=== PATIENT | female | born 1995 | race Two or more races ===

== ENCOUNTER → 2025-06-11 | Outpatient (CLI) | payer BC, SELFPAY ==
--- NOTE | 2025-06-11 | XR_ITS ---
Examination: PA lateral chest 2 views TECHNIQUE: Upright PA lateral chest 2 views Date and time: June 11, 2025 1510 hours INDICATIONS: Chest pain beginning 3 days ago. FINDINGS: Normal heart size. Lungs are clear. The osseous structures are intact IMPRESSION: No active disease
[2025-06-11 16:03] LABS: Basophils # (Auto) 0.0 Thou/mm3 (0.0-0.2); Basophils % (Auto) 1 % (0-2.5); Eosinophils # (Auto) 0.1 Thou/mm3 (0.0-0.5); Eosinophils % (Auto) 1 % (0-10); Hematocrit 36.4 % (36.0-46.0); Hemoglobin 12.1 g/dL (12.0-16.0); Immature Granulocytes Auto 0.02 Thou/mm3 (0.00-0.00); Lymphocytes # (Auto) 1.6 Thou/mm3 (1.0-4.8); Lymphocytes % (Auto) 26 % (10-50); Mean Corpuscular HGB Conc 33.2 g/dl (31.0-37.0); Mean Corpuscular Hemoglobin 30.6 pg (25.0-35.0); Mean Corpuscular Volume 92 fL (80-100); Monocytes # (Auto) 0.4 Thou/mm3 (0.0-0.8); Monocytes % (Auto) 6 % (0-12); Neutrophils # (Auto) 4.2 Thou/mm3 (1.8-7.7); Neutrophils % (Auto) 66 % (37-80); Nucleated Red Blood Cell # 0.00 Thou/mm3 (0.00-0.00); Nucleated Red Blood Cell % 0 /100 WBC (0); Platelet Count 184 Thou/mm3 (140-440); RDW Standard Deviation 41.6 fL (36.4-46.3); Red Blood Count 3.96 Miln/mm3 (4.00-5.20); White Blood Count 6.4 Thou/mm3 (3.6-11.0)
[2025-06-11 16:08] LABS: Alanine Aminotransferase 36 U/L (10-49); Albumin, Serum 4.6 gm/dL (3.5-5.0); Albumin/Globulin Ratio 2.0 (1.2-2.2); Alkaline Phosphatase 78 U/L (46-116); Anion Gap 9 (7-16); Aspartate Amino Transferase 45 U/L (0-34); BUN/Creatinine Ratio 13 Ratio (12-20); Bilirubin,Total 0.4 mg/dL (0.3-1.2); Blood Urea Nitrogen 8 mg/dL (9-23); Calcium 9.3 mg/dL (8.3-10.6); Calcium (Corrected) 9.3 mg/dL (8.5-10.1); Carbon Dioxide 24.6 mMol/L (20.0-31.0); Chloride 106 mMol/L (98-107); Creatinine (Component) 0.6 mg/dL (0.6-1.3); Globulin 2.3 gm/dL (2.3-3.5); Glucose 93 mg/dL (74-106); Osmolality,Calculated 277 (275-295); Potassium 4.6 mMol/L (3.4-5.1); Sodium 140 mMol/L (136-145); Thyroid Stimulating Hormone 0.52 uIU/mL (0.55-4.78); Total Protein 6.9 gm/dL (5.7-8.2); Troponin I < 0.002 ng/mL (0.0-0.045); eGFR > 60 See Note
== END | disposition home or self-care (01) ==
LOC: COPL 14:27
PROVIDERS: PCP Family Medicine; Referring Provider Physician Assistant; Visit Provider Radiology Diagnostic Radiology
DX: R07.9 Chest pain, unspecified (principal); R00.2 Palpitations
CPT/HCPCS: 36415; 71046; 80053; 84443; 84484; 85025

== ENCOUNTER → 2025-06-15 | Outpatient (CLI) | payer BC, SELFPAY ==
[2025-06-15 08:52] LABS: Alanine Aminotransferase 18 U/L (10-49); Albumin, Serum 4.6 gm/dL (3.5-5.0); Albumin/Globulin Ratio 2.1 (1.2-2.2); Alkaline Phosphatase 76 U/L (46-116); Anion Gap 10 (7-16); Aspartate Amino Transferase 16 U/L (0-34); BUN/Creatinine Ratio 20 Ratio (12-20); Bilirubin,Total 0.5 mg/dL (0.3-1.2); Blood Urea Nitrogen 12 mg/dL (9-23); Calcium 9.4 mg/dL (8.3-10.6); Calcium (Corrected) 9.4 mg/dL (8.5-10.1); Carbon Dioxide 24.8 mMol/L (20.0-31.0); Chloride 106 mMol/L (98-107); Creatinine (Component) 0.6 mg/dL (0.6-1.3); Globulin 2.2 gm/dL (2.3-3.5); Glucose 92 mg/dL (74-106); Osmolality,Calculated 280 (275-295); Potassium 4.2 mMol/L (3.4-5.1); Sodium 141 mMol/L (136-145); Thyroid Stimulating Hormone 1.15 uIU/mL (0.55-4.78); Total Protein 6.8 gm/dL (5.7-8.2); eGFR > 60 See Note
== END | disposition home or self-care (01) ==
LOC: COPL 07:35
PROVIDERS: PCP Physician Assistant; Referring Provider Physician Assistant; Visit Provider Physician Assistant
DX: R94.6 Abnormal results of thyroid function studies (principal); R94.5 Abnormal results of liver function studies
CPT/HCPCS: 36415; 80053; 84443

== ENCOUNTER → 2025-07-17 | Outpatient (CLI) | payer BC, SELFPAY ==
--- NOTE | 2025-07-17 14:00 | XR_ITS ---
Examination: CT brain head without contrast. 2-D sagittal coronal reconstructions Date and time of exam:July 17, 2025 1426 hours INDICATIONS: Headaches and dizziness episodes beginning February 2025 CTDI: vol (mGy):46.5 DLP: (mGycm):890 Technique: Multiple CT axial sections of the brain have been obtained, 5 mm slice thickness. Contrast has not been administered. 2-D sagittal, coronal reconstructions have been obtained Low dose protocols were performed. One or more of the following dose reduction techniques were used; automated exposure control, adjustment of the mA and/or KV according to patient size, use of iterative reconstruction technique. Findings: No significant ventricular enlargement. Intra-axial or extra-axial hemorrhage density is not seen. No mass effect or midline shift Basal cisterns are not remarkable. Fourth ventricle is midline. Cranial vault intact. Impression: Negative for acute hemorrhage, mass effect or midline shift Advise clinical correlation follow-up accordingly
== END | disposition home or self-care (01) ==
LOC: CCTX 13:55
PROVIDERS: PCP Family Medicine; Referring Provider Physician Assistant; Visit Provider Physician Assistant
DX: R51.9 Headache, unspecified (principal)
CPT/HCPCS: 70450